=== PATIENT | male | born 1980 ===

== ENCOUNTER 2025-01-01 14:20 | Emergency (ER) | payer MEDICAID, SELFPAY ==
[2025-01-01 14:34] VITALS: BP 161/81; PULSE 77; RESP 16; TEMP 36.7; O2SAT 98; BMI 22.9
== END 2025-01-01 17:37 | disposition left against medical advice (07) ==
DX: Z53.21 Procedure and treatment not carried out due to patient leaving prior to being seen by health care provider (principal)